=== PATIENT | female | born 1985 | race Caucasian/White ===

== ENCOUNTER 2016-11-14 16:35 | Emergency (ER) | payer SELFPAY ==
[~2016-11-14] VITALS: Ht 156.2 cm; Wt 50.7 kg
[~2016-11-14 16:35] MED LIST: HYDR-4246 PO; TOPI200T45 PO; [UNRECOGNIZED DRUG - CODE] PO
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
--- OUTSIDE RECORDS SUMMARY | 2016-11-14 16:40 | XMS REPORT | Continuity of Care Document ---
Author Author [facility] Organization [facility] Address Unknown Phone Unavailable Support Name Relationship Address Phone ANEESH CAST MD Caregiver [facility] [address] [place] [address] Unavailable STANFORD PACHECO APRN Caregiver [address] [place] [address] BELKIS AMBROSE Next Of Kin [address] [place] [phone] Insurance Providers Payer Name Policy Number Subscriber Name Relationship Self Pay Criss Benz 18 Self Advance Directives Directive Response Recorded Date/Time Advanced Directives Type None 07/16/14 1:04am Problems Medical Problems Problem Onset Date Status Diphenhydramine adverse reaction Unknown Active Diphenhydramine adverse reaction Unknown Active Poor compliance with medication Unknown Active Seizure disorder Unknown Active Poor compliance with medication Unknown Active Vomiting Unknown Active Gastroenteritis Unknown Active Gastroenteritis Unknown Active Alcohol intoxication Unknown Active Deliberate self-cutting Unknown Active Emotional crisis, acute reaction to stress Unknown Active Medications Medication Dose Route Sig Days/Qty Instructions Order Date Discontinued Date Status Carbamazepine 200 Mg PO 12/29/13 Active Social History Social History Problem Response Recorded Date/Time Chewing Tobacco Status No 07/16/2014 1:04am Hx Substance Use No 07/16/2014 1:04am Hx Alcohol Use Y SOCIALLY 07/16/2014 1:04am Tobacco Usage smoke 12/29/2013 1:10am Query Response Start Date Stop Date Smoking Status Current every day smoker Hospital Discharge Instructions No hospital discharge instructions. Plan of Care No plan of care. Functional Status Query Response Date Recorded Physical Hygiene Self July 16, 2014 1:04am Disabilities None July 16, 2014 1:04am Devices Used None July 16, 2014 1:04am Dressing Self July 16, 2014 1:04am Ambulation Self December 29, 2013 12:25am Diet Self July 16, 2014 1:04am Mental Status Alert Oriented December 29, 2013 12:25am Disabilities None July 16, 2014 1:04am Devices Used None July 16, 2014 1:04am Physical Hygiene Self July 16, 2014 1:04am Dressing Self July 16, 2014 1:04am Ambulation Self December 29, 2013 12:25am Diet Self July 16, 2014 1:04am Allergies, Adverse Reactions, Alerts Allergen Type Severity Reaction Status Last Updated Codeine Allergy Unknown Active 04/18/14 Diphenhydramine Allergy Unknown Active 04/18/14 Immunizations Name Given Type Hx Influenza Vaccination No Historical Hx Pneumococcal Vaccination No Historical Hx Tetanus, Diptheria, Pertussis No Historical Hx Influenza Vaccination No Historical Hx Tetanus, Diptheria, Pertussis No Historical Vital Signs Acute Vital Signs Vital Response Date/Time Temperature (Fahrenheit) 97.2 deg F (96.8 - 99.1) Temperature (Calculated Celsius) 36.93017 degrees C (36.0 - 37.3) Pulse Rate (adult) 78 bpm (60 - 100) Respiratory Rate 20 breaths/min (10 - 20) O2 Sat by Pulse Oximetry 97 % (90 - 100) Blood Pressure 112/78 mm Hg Height 5 ft 1 in Weight 122 lb Body Mass Index 23.0 kg/m^2 Results Test Source Date Result Interp. Ref. Range Comments Acetaminophen Level March 30, 2009 3:43am < 10 UG/ML L 10-30 Activated Partial Thromboplast Time December 14, 2008 5:30pm 25.8 SEC N 25- 36 Alanine Aminotransferase (ALT/SGPT) July 16, 2014 1:20am 17 U/L N 9- 52 Albumin July 16, 2014 1:20am 4.6 G/DL N 3.5-5.0 Albumin/Globulin Ratio July 16, 2014 1:20am 1.4 RATIO N 1.1-2.2 Alcohol, Quantitative July 16, 2014 1:20am 183 MG/DL - Alkaline Phosphatase July 16, 2014 1:20am 64 U/L N 38-126 Amylase Level April 18, 2014 3:45am 57 U/L N 30-110 Anion Gap July 16, 2014 1:20am 12 MEQ/L N 5-15 Aspartate Amino Transf (AST/SGOT) July 16, 2014 1:20am 25 U/L N 14- 36 B-Type Natriuretic Peptide December 14, 2008 5:30pm < 15 PG/ML L 15-100 BUN/Creatinine Ratio July 16, 2014 1:20am 5 RATIO L 6-26 Band Neutrophils # March 23, 2008 5:11am 0.2 T/MM3 - Band Neutrophils % March 23, 2008 5:11am 2.0 % N 0-6 Basophils # (Auto) April 18, 2014 3:45am 0.1 T/MM3 N 0-0.2 Basophils # (Manual) March 23, 2008 5:11am 0.0 T/MM3 N 0-0.2 Basophils % (Manual) March 23, 2008 5:11am 0.0 % N 0-2 Basophils (%) (Auto) April 18, 2014 3:45am 0.4 % N 0-2 Blood Urea Nitrogen July 16, 2014 1:20am 3.0 MG/DL L 7-17 Calcium Level July 16, 2014 1:20am 9.9 MG/DL N 8.4-10.2 Calculated Osmolality July 16, 2014 1:20am 279 MOSM/KG N 261-280 Carbon Dioxide Level July 16, 2014 1:20am 24 MEQ/L N 22-30 Chloride Level July 16, 2014 1:20am 111 MEQ/L H 98-107 Creatinine July 16, 2014 1:20am 0.6 MG/DL L 0.7-1.2 Eosinophils # (Auto) April 18, 2014 3:45am 0.0 T/MM3 N 0-0.5 Eosinophils # (Manual) March 30, 2009 3:43am 0.1 T/MM3 N 0-0.5 Eosinophils % (Manual) March 30, 2009 3:43am 1.0 % N 0-4 Eosinophils (%) (Auto) April 18, 2014 3:45am 0.2 % N 0-4 Free Thyroxine May 25, 2009 12:50pm 0.85 NG/DL N 0.78-2.19 Globulin July 16, 2014 1:20am 3.2 G/DL N 2.4-3.6 Glucose Level July 16, 2014 1:20am 98 MG/DL N 65-110 Hematocrit July 16, 2014 1:20am 43.7 % N 36-46 Hemoglobin July 16, 2014 1:20am 15.2 GM/DL N 12-16 Lipase April 18, 2014 3:45am 29 U/L N 23-300 Lymphocytes # (Auto) April 18, 2014 3:45am 2.8 T/MM3 N 1-4.8 Lymphocytes # (Manual) July 16, 2014 1:20am 2.8 T/MM3 N 1-4.8 Lymphocytes % (Manual) July 16, 2014 1:20am 23.0 % N 23-45 Lymphocytes (%) (Auto) April 18, 2014 3:45am 20.1 % L 23-45 Mean Corpuscular Hemoglobin July 16, 2014 1:20am 31.4 UUG N 26-34 Mean Corpuscular Hemoglobin Concent July 16, 2014 1:20am 34.8 GM/DL N 31-37 Mean Corpuscular Volume July 16, 2014 1:20am 90.3 UM3 N 80-100 Mean Platelet Volume July 16, 2014 1:20am 10.0 UM3 N 9.4-12.4 Monocytes # (Auto) April 18, 2014 3:45am 0.8 T/MM3 N 0-0.8 Monocytes # (Manual) July 16, 2014 1:20am 0.7 T/MM3 N 0-0.8 Monocytes % (Manual) July 16, 2014 1:20am 6.0 % N 0-9.0 Monocytes (%) (Auto) April 18, 2014 3:45am 5.6 % N 0-9.0 Neutrophils # (Auto) April 18, 2014 3:45am 10.3 T/MM3 H 1.8-7.7 Neutrophils # (Manual) July 16, 2014 1:20am 8.6 T/MM3 H 1.8-7.7 Neutrophils % (Manual) July 16, 2014 1:20am 71.0 % H 33-66 Neutrophils (%) (Auto) April 18, 2014 3:45am 73.6 % H 33-66 Platelet Count July 16, 2014 1:20am 260 T/MM3 N 130-400 Potassium Level July 16, 2014 1:20am 3.6 MEQ/L N 3.6-5 Prothromb Time International Ratio December 14, 2008 5:30pm 0.93 N 0.79- 1.23 THERAPUTIC RANGE=2.00-3.00 FOR ANTI-THROMBOSIS THERAPUTIC RANGE=2.50- 3.50 FOR IMPLANTED VALVE RDW Standard Deviation July 16, 2014 1:20am 41.9 FL N 36.9-50.2 Red Blood Count July 16, 2014 1:20am 4.84 M/MM3 N 4.00-5.20 Salicylates Level March 30, 2009 3:43am < 1.0 MG/DL L 2-20 Sodium Level July 16, 2014 1:20am 147 MEQ/L H 134-144 Tests Not Done December 14, 2008 5:50pm Not done - Has specimen been collected/obtained? Y Thyroid Stimulating Hormone (TSH) April 18, 2014 3:45am 1.78 MIU/L N 0.47-4.68 Total Bilirubin July 16, 2014 1:20am 0.30 MG/DL N 0.20-1.30 Total Protein July 16, 2014 1:20am 7.8 G/DL N 6.3-8.2 Troponin I December 14, 2008 5:30pm 0.004 ng/ml N 0-0.12 Urine Amorphous Phosphates November 08, 2007 4:00pm Many - Has specimen been collected/obtained? Y Urine Amorphous Urates November 15, 2007 2:35am Few - Has specimen been collected/obtained? Y Urine Bacteria November 15, 2007 2:35am Trace - Has specimen been collected/obtained? Y Urine Bilirubin April 18, 2014 4:00am Negative - Has specimen been collected/obtained? Y Urine Blood April 18, 2014 4:00am Negative - Has specimen been collected/obtained? Y Urine Collection Type April 18, 2014 4:00am Cleancatch-midstream - Has specimen been collected/obtained? Y Urine Color April 18, 2014 4:00am Yellow - Has specimen been collected/obtained? Y Urine Culture Indicated November 08, 2007 4:00pm Cult not set up - Has specimen been collected/obtained? Y Urine Glucose (UA) April 18, 2014 4:00am Negative - Has specimen been collected/obtained? Y Urine Ketones April 18, 2014 4:00am Negative - Has specimen been collected/obtained? Y Urine Leukocyte Esterase April 18, 2014 4:00am Negative - Has specimen been collected/obtained? Y Urine Nitrite April 18, 2014 4:00am Negative - Has specimen been collected/obtained? Y Urine Test March 23, 2008 4:15am Negative - Has specimen been collected/obtained? YWhat is the Source? VOIDED Urine Protein April 18, 2014 4:00am Negative - Has specimen been collected/obtained? Y Urine RBC March 23, 2008 4:15am Not Performed - Urine Specific [place] April 18, 2014 4:00am <=1.005 L - Has specimen been collected/obtained? Y Urine Squamous Epithelial Cells November 15, 2007 2:35am Moderate - Has specimen been collected/obtained? Y Urine Turbidity April 18, 2014 4:00am Clear - Has specimen been collected/obtained? Y Urine Urobilinogen April 18, 2014 4:00am 0.2 EU/DL - Has specimen been collected/obtained? Y Urine WBC March 23, 2008 4:15am Not Performed - Urine pH April 18, 2014 4:00am 6.0 - Has specimen been collected/ obtained? Y White Blood Count July 16, 2014 1:20am 12.1 T/MM3 H 4.5-11.0 Chemistry Specimen Hemolysis July 16, 2014 1:20am < 15 0-25 0-25: No Hemolysis.26-70: Slight Hemolysis - can falsely elevate K and Urine Protein. 71-285: Moderate Hemolysis - can falsely elevate K, Troponin I, CA 19-9, PTH, CSF GLucose, and Urine Protein, and can falsely decrease Phenytoin. 286-999: Gross Hemolysis - can falsely elevate K, Troponin I, CA 19-9, PTH, CSF Glucose, and Urine Protine, and can falsely decrease Phenytoin. Recommend specimen recollection. Urinalysis Comment April 18, 2014 4:00am Microscopic not ind. - Has specimen been collected/obtained? Y Glucometer April 18, 2014 3:51am 92 mg/dL N 65-110 Lab Scanned Report December 29, 2013 6:42am REFERENCE LAB [id number] - EKG March 30, 2009 3:43am Complete - Turbidity July 16, 2014 1:20am < 20 0-20 Glomerular Filtration Rate Calc July 16, 2014 1:20am 119 - Immature Granulocyte # (Auto) April 18, 2014 3:45am 0.02 T/MM3 N 0.00- 0.03 Immature Granulocyte % (Auto) April 18, 2014 3:45am 0.1 % N 0.0-0.5 Icterus Index July 16, 2014 1:20am < 2 0-7 Wet Prep Vagina February 07, 2012 2:20pm Urine Culture Urine, Suprapubic January 13, 2010 12:02pm Kleb Pneumoniae Ssp Pneumoniae Name: CRISS BENZ Unit #: [id number] : 1985 Sex: F Loc / Svc: ED DOS: 04/18/14 Signed Report #: [id number] DIAGNOSTIC IMAGING REPORT TYPE OF EXAM: ABDOMEN ACUTE (INC. CHEST) Dictated By: CANDICE PARDO MD INDICATION: ITS.REASON: VOMITING ABDOMEN ACUTE (INC. CHEST): Comparison: None FINDINGS: The lungs are clear. There is no abnormal airspace opacity, pleural effusion or pneumothorax identified. The heart size, pulmonary vasculature and mediastinum are within normal limits. There is no free air on the upright view. The bowel gas pattern is nonobstructive and nonspecific. Gas is seen in nondilated small and large bowel to the level of the rectum. Moderate stool is seen throughout the colon. The bony structures are grossly unremarkable. Tubal ligation clips. IMPRESSION: 1. No acute cardiopulmonary abnormality. 2. No evidence of acute obstruction or free air. . Procedures Procedure Status Date Provider(s) HYDRATE IV INFUSION ADD-ON completed 04/18/14 THER/PROPH/DIAG INJ IV PUSH completed 04/18/14 Encounters Encounter Location Date/Time Departed Emergency Room [facility] 07/16/14 12:50am Departed Emergency Room [facility] 04/18/14 2:38am Recent Diagnosis
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
[2016-11-14 16:42] VITALS: Ht 156.2 cm; Wt 50.7 kg
--- OUTSIDE RECORDS SUMMARY | 2016-11-14 17:00 | XMS REPORT | Continuity of Care Document ---
Author Author [facility] Organization [facility] Address Unknown Phone Unavailable Support Name Relationship Address Phone ANEESH CAST MD Caregiver [facility] [address] [place] [address] Unavailable STANFORD PACHECO APRN Caregiver [address] [place] [address] BELKIS AMBROSE Next Of Kin [address] [place] [phone] Insurance Providers Payer Name Policy Number Subscriber [...] F (96.8 - 99.1) Temperature (Calculated Celsius) 36.34014 degrees C (36.0 - 37.3) Pulse Rate [...] 2008 4:15am Not Performed - Urine Specific [place] April 18, 2014 4:00am <=1.005 L - [...] Report December 29, 2013 6:42am REFERENCE LAB [id number] - EKG March 30, 2009 3:43am Complete [...] Ssp Pneumoniae Name: CRISS BENZ Unit #: [id number] : 1985 Sex: F Loc / Svc: ED DOS: 04/18/14 Signed Report #: [id number] DIAGNOSTIC IMAGING REPORT TYPE OF EXAM: ABDOMEN [...] Encounters Encounter Location Date/Time Departed Emergency Room [facility] 07/16/14 12:50am Departed Emergency Room [facility] 04/18/14 2:38am Recent Diagnosis
--- NOTE | 2016-11-14 17:17 | ERPDOC ---
Departure Disposition Decision Date: November 14, 2016 Disposition Decision Time: 18:09 Disposition: 01 DISCHARGED HOME, SELF-CARE Impression Impression Impression: Primary Impression: Urinary tract infection Urinary tract infection type: acute cystitis Hematuria presence: with hematuria Qualified Codes: N30.01 - Acute cystitis with hematuria Severity: Moderate Condition: Improved Seen By: Mid-level only Referrals: STANFORD PACHECO APRN (Family) Patient Instructions: Urinary Tract Infection in Women (ED) Problems/Meds/Labs Reviewed?: Yes Medications reviewed and manag: Yes Additional Instructions: You have an urinary tract infection. Take Cipro 500mg twice daily for 7 days. Take 800mg of ibuprofen every 8 hours with food for pain. Take Pyridium 200mg every 8 hours for first 2 days ( you may take OTC Azo instead) for bladder pain. This medication turn your urine orange red. Drink 2-3 quarts of water daily to flush your urinary tract. If your symptoms are not improving in the next 48-72 hours follow with your PCP. Follow treatment plan. Follow up care ordered?: Yes Mental Status: Alert, Oriented Scripts Ciprofloxacin HCl (Cipro) 500 Mg Tablet 500 MG PO Q12HR for 7 Days, #14 TAB Prov: ANGELIQUE NARAYAN APRN 11/14/16 Phenazopyridine HCl (Pyridium) 200 Mg Tablet 200 MG PO TID for 2 Days, #6 TAB Prov: ANGELIQUE NARAYAN APRN 11/14/16 HPI - Female General Chief Complaint: Female Urogenital Problems Stated Complaint: POSS BLADDER INF Time Seen by Provider: 16:56 Source: patient HPI - Female Initial Comments 31-year-old female presents to ER with complaint of dysuria, urinary urgency/ frequency for 1 week accompanied by suprapubic discomfort. States that today she's became nauseated and is having bilateral flank pain. Patient has not seen her PCP. Denies fever, chills, vomiting or hematuria. Pain Scale: Now: 8/10 Location: suprapubic, right flank, left flank Associated Symptoms: dysuria, urinary frequency, DENIES: fever/chills : 2 Allergies: Coded Allergies: codeine (Verified Allergy, Unknown, 04/18/14) diphenhydramine (Verified Allergy, Unknown, 04/18/14) Past History Past Medical History Metabolic: DENIES: diabetes Cardiac: DENIES: angina Respiratory: DENIES: asthma GI: DENIES: ulcers Female: UTI, endometriosis, other (interstitial cystitis), DENIES: renal insufficiency Neurological: seizures Musculoskeletal: DENIES: back pain, neck pain Psychological: depression Surgical History Reproductive/: tubal ligation Family History Family PMH: FOUND: other (noncontributory) Vaccines Hx Influenza Vaccination: No Hx Pneumococcal Vaccination: No Hx Tetanus, Diptheria, Pertuss: No Social History # of Packs/Tins per Day: 1.5 Sexuality: female partner Review of Systems Constitutional Constitutional: DENIES: chills, dizziness, fever, weakness Eyes General: DENIES: erythema, exudate Lids/Accessories: DENIES: erythema, swelling ENMT Ears: DENIES: pain Hearing: hearing loss Sinuses: DENIES: congestion, rhinorrhea Mouth/Throat: DENIES: sore throat Cardiovascular Cardiac: DENIES: chest pain Pulmonary Respiratory: DENIES: cough, dyspnea GI Upper Abdomen: nausea, DENIES: pain, vomiting Lower Abdomen: pain, DENIES: diarrhea General: frequency, DENIES: dysuria Musculoskeletal General: DENIES: joint pain, pain, tenderness Integumentary Skin: DENIES: color change, itching, rash Neurological General: DENIES: ataxia, change in strength, numbness, paralysis/paresis, weakness Psychiatric Psychiatric: DENIES: anxiety, depression, nervousness Physical Exam General General Nourishment: well nourished, well developed, no acute distress, adult Vitals and Pain First Documented Vital Signs Date Time Temp Pulse Resp B/P Pulse Ox O2 Delivery O2 Flow Rate FiO2 11/14/16 16:42 98.9 95 20 148/104 98 Room Air Weight: Kilograms: 50.700 Height (feet): 5 Height (inches): 1.50 Triage Pain Scale: Eyes (brief) Eyes Brief: found: EOMI ENMT (brief) ENMT Brief: NOT FOUND: nasal exudate, nasal swelling, pharnyx erythema Neck (brief) Neck: FOUND: trachea midline Respiratory (brief) Respiratory: FOUND: clear all man, equal bilaterally, symmetrical Cardiovascular (brief) Cardiac: FOUND: regular rate, regular rhythm Abdomen (brief) Abdominal Brief: FOUND: bowel normo active x4, soft, tender (TTP over suprapubic area and TTP over bilateral flank area), NOT FOUND: distended Musculoskeletal (brief) Musculoskeletal Brief: NOT FOUND: deformity, tenderness Integumentary (brief) Integumentary Brief: FOUND: dry, pink, warm Neurologic (brief) Neurological Brief: FOUND: CN w/o gross def to obs, motor-no gross deficits, sensory-no gross deficits Psychiatric (brief) Psychiatric Brief: FOUND: alert, normal affect, oriented Differential Diagnoses Considering: Pyelonephritis, Renal Colic, UTI, Bacterial Vaginitis, Yeast Vaginitis Progress Results/Orders Orders Procedure Category Date Status Time Ondansetron Odt PHA 11/14/16 Complete (Zofran Odt) 17:30 Cbc W/Auto LAB 11/14/16 Complete Diff-Reflex Manual Bmp - Basic Metabolic LAB 11/14/16 Complete Panel UA, LAB 11/14/16 Complete Dip&Micro(Complete) & 17:00 Urine Culture ACE 11/14/16 In Process 17:44 Ketorolac (Toradol) PHA 11/14/16 Complete 18:00 Phenazopyridine Hcl PHA 11/14/16 Complete (Pyridium Eq.) 18:00 Lab Results Laboratory Tests Test 11/14/16 17:00 11/14/16 17:34 Urine Collection Type Cleancatch-midstream Urine Color Yellow Urine Turbidity Sl cloudy Urine pH 6.5 Urine Specific [place] 1.010 Urine Protein 1+ Urine Glucose (UA) Negative Urine Ketones Negative Urine Blood 2+ Urine Nitrite Positive Urine Bilirubin Negative Urine Urobilinogen 0.2EU/DL Urine Leukocyte Esterase 2+ Urine RBC 5-10/HPF Urine WBC 50-200/HPF Urine Squamous Epithelial Cells 0-5 Urine Bacteria 1+ Urine Culture Indicated Cult reflexed &setup White Blood Count 13.1T/MM3 Red Blood Count 4.83M/MM3 Hemoglobin 14.8GM/DL Hematocrit 42.5% Mean Corpuscular Volume 88.0UM3 Mean Corpuscular Hemoglobin 30.6UUG Mean Corpuscular Hemoglobin Concent 34.8GM/DL RDW Standard Deviation 40.9FL Platelet Count 221T/MM3 Mean Platelet Volume 10.5UM3 Immature Granulocyte % (Auto) 0.1% Neutrophils (%) (Auto) 81.2% Lymphocytes (%) (Auto) 12.1% Monocytes (%) (Auto) 6.2% Eosinophils (%) (Auto) 0.2% Basophils (%) (Auto) 0.2% Absolute Immature Granulocyte (auto 0.01T/MM3 Absolute Neutrophils (auto) 10.7T/MM3 Absolute Lymphocytes (auto) 1.6T/MM3 Absolute Monocytes (auto) 0.8T/MM3 Absolute Eosinophils (auto) 0.0T/MM3 Absolute Basophils (auto) 0.0T/MM3 Turbidity < 20 Sodium Level 140MEQ/L Potassium Level 3.8MEQ/L Chloride Level 103MEQ/L Carbon Dioxide Level 24MEQ/L Anion Gap 13MEQ/L Blood Urea Nitrogen 7.0MG/DL Creatinine 0.6MG/DL Glomerular Filtration Rate Calc 117 BUN/Creatinine Ratio 12RATIO Glucose Level 90MG/DL Calculated Osmolality 267MOSM/KG Calcium Level 9.3MG/DL Icterus Index < 2 Chemistry Specimen Hemolysis < 15 Medications Current ED Medications Ondansetron HCl (Zofran Odt) 4 mg O ONCE PO Last administered on 11/14/16 17: 31; Start 11/14/16 at 17:30; Stop 11/14/16 at 17:31; Status DC Ketorolac Tromethamine (Toradol) 60 mg O ONCE IM Last administered on 18:05; Start 11/14/16 at 18:00; Stop 11/14/16 at 18:01; Status DC Phenazopyridine HCl (Pyridium Eq.) 190 mg O ONCE PO Last administered on 18:07; Start 11/14/16 at 18:00; Stop 11/14/16 at 18:01; Status DC Progress Progress WBC 13.1, no bands BMP unremarkable UA positive for nitrates and LE, 50-200 WBC, 1+ bacteria Patient reports she is feeling much better after Toradol and Pyridium. I discussed labs, treatment plan, close follow up with PCP and return precautions which patient verbalized understanding. Patient is sent home improved. ANGELIQUE NARAYAN INSIDE SALES EXECUTIVE November 14, 2016 17:17
[2016-11-14] MEDS ORDERED: ONDANSETRON ODT 4 MG TAB PO ONE (17:30)
[2016-11-14 17:31] LABS: BLOOD, URINE 2+ (NEGATIVE); COLOR,URINE YELLOW (YELLOW); LEUKOCYTE ESTERASE ,URINE 2+ (NEGATIVE); NITRITE,URINE POSITIVE (NEGATIVE); UROBILINOGEN,URINE 0.2 EU/DL (NORMAL)
[2016-11-14 17:43] LABS: BACTERIA,URINE 1+ (NEGATIVE); SQUAMOUS EPITHELIAL CELL,UR 0-5; WBC,URINE 50-200 /HPF (0-5)
[2016-11-14 17:54] LABS: BASOPHILS % (AUTO) 0.2 % (0-2); EOSINOPHILS % (AUTO) 0.2 % (0-4); HCT - HEMATOCRIT 42.5 % (36-46); HGB - HEMOGLOBIN 14.8 GM/DL (12-16); IMMATURE GRANULOCYTE # (AUTO) 0.01 T/MM3 (0.00-0.03); IMMATURE GRANULOCYTE % (AUTO) 0.1 % (0.0-0.5); LYMPHOCYTES # (AUTO) 1.6 T/MM3 (1-4.8); LYMPHOCYTES % (AUTO) 12.1 % (23-45); MEAN CORPUSCULAR HGB 30.6 UUG (26-34); MEAN CORPUSCULAR HGB CONC(MCHC 34.8 GM/DL (31-37); MEAN PLATELET VOLUME 10.5 UM3 (9.4-12.4); MONOCYTES # (AUTO) 0.8 T/MM3 (0-0.8); MONOCYTES % (AUTO) 6.2 % (0-9.0); NEUTROPHILS #(AUTO)-ABSOLUTE 10.7 T/MM3 (1.8-7.7); NEUTROPHILS % (AUTO) 81.2 % (33-66); RED BLOOD COUNT 4.83 M/MM3 (4.00-5.20); WBC - WHITE BLOOD COUNT 13.1 T/MM3 (4.5-11.0)
[2016-11-14] MEDS ORDERED: PHENAZOPYRIDINE 95 MG TABLET PO ONE (18:00)
[2016-11-14] MEDS ORDERED: KETOROLAC 60mg/2ml INJECTION IM ONE (18:00)
[2016-11-14 18:01] LABS: ANION GAP 13 MEQ/L (5-15); BUN/CREATININE RATIO 12 RATIO (6-26); CALCIUM 9.3 MG/DL (8.4-10.2); CHLORIDE 103 MEQ/L (98-107); CO2 - CARBON DIOXIDE 24 MEQ/L (22-30); CREATININE 0.6 MG/DL (0.7-1.2); GLOMERULAR FILTRATION RATE 117; GLUCOSE 90 MG/DL (65-110); POTASSIUM 3.8 MEQ/L (3.6-5); SODIUM 140 MEQ/L (134-144)
[2016-11-14] MEDS ORDERED: CIPR-212 PO (18:14)
[2016-11-14] MEDS ORDERED: PHEN-779 PO (18:14)
--- NOTE | 2016-11-14 18:29 | NUR ---
REPORT RECIEVED REPORT FROM HASEEB HOUGH
[2016-11-14 18:50] VITALS: BP 120/84; PULSE 71; RESP 18; TEMP 98.9; O2SAT 96
--- NOTE | 2016-11-14 18:50 | NUR ---
DEPART PT IS GIVEN DISMISSAL INSTRUCTIONS WITH VERBAL UNDERSTANDING. PT IS GIVEN SCRIPT. PT LEAVES AMBULATORY TO ED REGISTRATION DESK
--- NOTE | 2016-11-16 15:04 | NUR ---
CULTURE NOTE E Coli with sensitivity to Ciprofloxin. No action needed.
== END 2016-11-14 18:50 | disposition home or self-care (01) ==
LOC: ED 16:35
DX: N30.01 Acute cystitis with hematuria (principal)
CPT/HCPCS: 36415; 80048; 81001; 85025; 87077; 87086; 87186; 96372